=== PATIENT | female | born 1985 | race Caucasian/White ===

== ENCOUNTER 2016-12-23 18:59 | Emergency (ER) | payer SELFPAY ==
--- NOTE | ~2016-12-23 | CT4 ---
[facility] A Service of [facility] RADIOLOGY TEXT RESULTS PATIENT: TRINI BRANDON LOCATION: SED : 81 UNIT #: [id number] AGE: [address]: Brenda Hawkins SEX: F ORDER DR: [id number] [address] [address] [id number] E MR#: [id number] Acc #: [id number] NAME: TRINI BRANDON : 1985 SEX: F STUDY DATE/TIME: 12/23/2016 19:14 UNIT: SED ROOM: STUDY DESCRIPTION: CT Abd and Pelv Wo Cont Attending Physician: Brenda Hawkins Pa-C Ordering Physician: Brenda Hawkins Pa-C MEDICAL IMAGING REPORT This report is preliminary unless electronic signature is present. EXAM CT of the abdomen and pelvis without contrast HISTORY Abdominal pain with vomiting 4-5 days. Patient also reports left-sided abdominal pain. TECHNIQUE Axial CT images were obtained from the dome of the diaphragm through the symphysis pubis. No oral or intravenous contrast administered. This CT exam was performed with one or more of the following radiation dose reduction techniques: automatic exposure control, adjustment of mA and/or kV according to patient size, and iterative reconstruction. FINDINGS Images through the lung bases are clear. Liver appears unremarkable. Gallbladder is surgically absent. Spleen is within normal limits. There is a small hiatal hernia. Adrenal glands appear normal, as is the pancreas. No renal stones are seen. There is no hydroureteronephrosis. No distal ureteral or bladder stones are seen. The uterus appears unremarkable. I do not see any free fluid or adenopathy within the pelvis. There is no evidence for mechanical bowel obstruction. Fairly extensive fecal burden is seen throughout the colon and correlation with history of constipation is recommended. Patient's appendix is surgically absent. Review of bony windows does not demonstrate any aggressive osseous abnormalities. IMPRESSION [facility] A Service of [facility] RADIOLOGY TEXT RESULTS PATIENT: TRINI BRANDON LOCATION: SED : 83 UNIT #: [id number] AGE: [address]: Brenda Hawkins SEX: F ORDER DR: 1. Patient does have fairly extensive fecal burden seen throughout the colon. Correlation with history of constipation is recommended. Otherwise, no acute abnormality is seen. Patient's gallbladder and appendix are surgically absent. Solid organs appear unremarkable. Dictated by... Cheyanne Lomeli M.D. THIS IS AN ELECTRONICALLY VERIFIED REPORT Cheyanne Lomeli M.D. at 12/26/2016 1:19 PM AFF/pcl TD: 12/24/2016 00:00 JOB #: [id number] MEDICAL IMAGING REPORT
[2016-12-23 18:59] LABS: URINE SOURCE CLEAN CATCH
[~2016-12-23 18:59] MED LIST: ATIVAN0.5 M1; BACTRIM DS TABL1 TA2 PO; CITALOPRAM HBR40 MG PO; FIORICET1 TAB; PYRIDIUM100 MG PO; SYNTHROID125; ZESTRIL2.5 MG
[2016-12-23 19:02] LABS: URINE APPEARANCE CLEAR; URINE BILIRUBIN NEG (NEG); URINE BLOOD NEG (NEG); URINE COLOR YELLOW; URINE GLUCOSE NEG (NORM); URINE KETONE NEG (NEG); URINE LEUKOCYTE ESTERASE 2+ (NEG); URINE NITRATE NEG (NEG); URINE PH 6.5 (5-8); URINE PROTEIN NEG (NEG); URINE SPECIFIC GRAVITY 1.015 (1.003-1.035); URINE UROBILINOGEN 0.2 MG/DL (NORM)
[2016-12-23 19:07] LABS: MICRO INDICATED? YES
[2016-12-23 19:08] LABS: CULTURE INDICATED? YES; URINE BACTERIA NEG (NEG)
[2016-12-23 19:09] LABS: URINE MUCUS PRESENT; URINE SQUAMOUS EPITHELIAL CELL MODERATE /[HPF]
[2016-12-23 19:17] LABS: BASOPHIL# 0.1 X10e3 (0-0.3); BASOPHIL% 0.8 % (0-2.5); DIFF IND NO; EOSINOPHIL# 0.1 X10e3 (0-0.7); EOSINOPHIL% 1.6 % (0.0-7.0); HEMATOCRIT 41.7 % (35.0-45.0); HEMOGLOBIN 14.1 gm/dL (12.0-16.0); LYMPHOCYTE# 1.7 X10e3 (1.0-3.5); LYMPHOCYTE% 20.3 % (17.0-45.0); MEAN CELL VOLUME 84.4 FL (83-96); MEAN CORPUSCULAR HEMOGLOBIN 28.6 PG (28-34); MEAN CORPUSCULAR HGB CONC 33.9 g/dL (30-36); MONOCYTE# 0.5 X10e3 (0-1.0); MONOCYTE% 5.6 % (3.0-12.0); NEUTROPHIL# 5.9 X10e3 (1.5-7.1); NEUTROPHIL% 71.7 % (40-75); PLATELET COUNT 269 X10e3 (140-420); RED BLOOD COUNT 4.94 X10e (3.90-5.30); RED CELL DISTRIBUTION WIDTH 13.6 % (11.0-15.5); WHITE BLOOD COUNT 8.3 X10e3 (4.0-10.5)
[2016-12-23 19:34] LABS: ALKALINE PHOSPHATASE 88 U/L (32-92); ALT (SGPT) 11 U/L (10-40); AMYLASE 27 U/L (0-46); AST (SGOT) 27 U/L (10-42); BILIRUBIN, DIRECT 0.2 mg/dL (0.0-0.2); BILIRUBIN,INDIRECT 0.6 mg/dL (0.0-0.9); BILIRUBIN,TOTAL 0.8 mg/dL (0.2-2.0); BLOOD UREA NITROGEN 7 mg/dL (9-23); BUN/CREATININE RATIO 8.75; CALCIUM SERUM 8.7 mg/dL (8.4-10.2); CARBON DIOXIDE 27 mmol/L (22-31); CHLORIDE 102 mmol/L (100-111); CREATININE SERUM 0.8 mg/dL (0.6-1.4); GLOM FILT RATE Estimated ABOVE60 mL/min (>60); GLUCOSE FASTING 99 mg/dL (70-110); LIPASE 31 U/L (22-51); PROTEIN TOTAL SERUM 6.8 g/dL (6.0-8.3); SODIUM 136 mmol/L (135-145)
== END 2016-12-23 21:21 | disposition home or self-care (01) ==
LOC: SED 18:59
PROVIDERS: Physician Assistant Medical
DX: R11.10 Vomiting, unspecified (principal); G43.909 Migraine, unspecified, not intractable, without status migrainosus; R10.9 Unspecified abdominal pain; E03.9 Hypothyroidism, unspecified; Z90.49 Acquired absence of other specified parts of digestive tract
CPT/HCPCS: 36415; 74176; 80048; 80076; 81003; 82150; 83690; 84703; 85025; 87086; 96374; 96375; 99284; J1200; J1885; J2405; J2765

== ENCOUNTER 2016-12-28 11:52 | Emergency (ER) | payer OTHER ==
--- NOTE | ~2016-12-28 | CR2 ---
[facility] A Service of [facility] RADIOLOGY TEXT RESULTS PATIENT: TRINI BRANDON LOCATION: SED : 83 UNIT #: [id number] AGE: [address]: Gonzalo Ponce MD SEX: F ORDER DR: [id number] [address] [address] [id number] E MR#: [id number] Acc #: [id number] NAME: TRINI BRANDON : 1985 SEX: F STUDY DATE/TIME: 12/28/2016 12:17 UNIT: SED ROOM: STUDY DESCRIPTION: CR Abdomen Acute Series Attending Physician: Gonzalo Ponce M.D. Ordering Physician: Gonzalo Ponce M.D. Primary Care Physician: No Primary Care Physician MEDICAL IMAGING REPORT This report is preliminary unless electronic signature is present. EXAM Acute abdominal series 12/28 INDICATIONS Abdominal pain which is diffuse with constipation and vomiting. Symptoms for about 8 days. FINDINGS Upright view of the chest was obtained in addition to flat and upright views of the abdomen. Comparison made with 06/26/2016. The lungs are clear. The cardiac and mediastinal contours are normal. There is no pneumothorax. Cholecystectomy clips are present. Clips in the right lower quadrant are again seen as well and may reflect changes of appendectomy. Again seen is a large volume of stool in the colon compatible with constipation. Small bowel gas is noted as well in a nonspecific but nonobstructive pattern. No free air is seen on the upright view. IMPRESSION 1. No active disease in the chest. 2. No bowel obstruction or free air. 3. Large volume of stool in the colon compatible with the given history of constipation. Minimal small bowel gas is nonspecific. Dictated by... Atilio Fox Jr., M.D. THIS IS AN ELECTRONICALLY VERIFIED REPORT Atilio Fox Jr., M.D. at 12/28/2016 2:59 PM RLK/joser [facility] A Service of [facility] RADIOLOGY TEXT RESULTS PATIENT: TRINI BRANDON [id number] UNIT #: [id number] AGE: [address]: Gonzalo Ponce MD SEX: F ORDER DR: TD: 12/28/2016 14:53 JOB #: [id number] MEDICAL IMAGING REPORT
[2016-12-28 11:56] LABS: BASOPHIL# 0.1 X10e3 (0-0.3); BASOPHIL% 0.9 % (0-2.5); DIFF IND NO; EOSINOPHIL# 0.1 X10e3 (0-0.7); EOSINOPHIL% 2.5 % (0.0-7.0); HEMATOCRIT 39.3 % (35.0-45.0); LYMPHOCYTE# 1.6 X10e3 (1.0-3.5); LYMPHOCYTE% 26.9 % (17.0-45.0); MEAN CELL VOLUME 84.9 FL (83-96); MEAN CORPUSCULAR HEMOGLOBIN 28.1 PG (28-34); MEAN CORPUSCULAR HGB CONC 33.1 g/dL (30-36); MONOCYTE# 0.4 X10e3 (0-1.0); MONOCYTE% 7.3 % (3.0-12.0); NEUTROPHIL# 3.6 X10e3 (1.5-7.1); NEUTROPHIL% 62.4 % (40-75); PLATELET COUNT 255 X10e3 (140-420); RED BLOOD COUNT 4.63 X10e (3.90-5.30); RED CELL DISTRIBUTION WIDTH 13.6 % (11.0-15.5); WHITE BLOOD COUNT 5.8 X10e3 (4.0-10.5)
[2016-12-28 11:57] LABS: URINE SOURCE CLEAN CATCH
[2016-12-28 11:59] LABS: URINE APPEARANCE CLEAR; URINE BILIRUBIN NEG (NEG); URINE BLOOD NEG (NEG); URINE COLOR YELLOW; URINE GLUCOSE NEG (NORM); URINE KETONE NEG (NEG); URINE NITRATE NEG (NEG); URINE PROTEIN NEG (NEG); URINE UROBILINOGEN 0.2 MG/DL (NORM)
[2016-12-28 12:04] LABS: MICRO INDICATED? NO; URINE LEUKOCYTE ESTERASE NEG (NEG)
[2016-12-28 12:14] LABS: ALBUMIN SERUM 4.1 g/dL (3.5-5.0); ALKALINE PHOSPHATASE 80 U/L (32-92); ALT (SGPT) 14 U/L (10-40); AST (SGOT) 19 U/L (10-42); BILIRUBIN, DIRECT 0.1 mg/dL (0.0-0.2); BILIRUBIN,INDIRECT 0.1 mg/dL (0.0-0.9); BILIRUBIN,TOTAL 0.2 mg/dL (0.2-2.0); BLOOD UREA NITROGEN 6 mg/dL (9-23); BUN/CREATININE RATIO 8.57; CALCIUM SERUM 8.8 mg/dL (8.4-10.2); CARBON DIOXIDE 27 mmol/L (22-31); CHLORIDE 102 mmol/L (100-111); CREATININE SERUM 0.7 mg/dL (0.6-1.4); GLOM FILT RATE Estimated ABOVE60 mL/min (>60); GLUCOSE FASTING 101 mg/dL (70-110); LIPASE 24 U/L (22-51); POTASSIUM 3.8 mmol/L (3.5-5.1); PROTEIN TOTAL SERUM 7.1 g/dL (6.0-8.3); SODIUM 137 mmol/L (135-145)
== END 2016-12-28 14:04 | disposition home or self-care (01) ==
LOC: SED 11:52
PROVIDERS: Emergency Medicine
DX: K29.00 Acute gastritis without bleeding (principal); K59.00 Constipation, unspecified; Z90.49 Acquired absence of other specified parts of digestive tract
CPT/HCPCS: 36415; 74022; 80048; 80076; 81003; 83690; 84703; 85025; 96361; 96374; 96375; 99284; J1170; J2405

== ENCOUNTER 2017-05-07 11:45 | Emergency (ER) | payer OTHER ==
[2017-05-07 12:09] LABS: URINE SOURCE CLEAN CATCH
[2017-05-07 12:12] LABS: URINE APPEARANCE CLEAR; URINE BILIRUBIN NEG (NEG); URINE BLOOD NEG (NEG); URINE COLOR YELLOW; URINE GLUCOSE NEG (NORM); URINE KETONE NEG (NEG); URINE LEUKOCYTE ESTERASE 2+ (NEG); URINE NITRATE NEG (NEG); URINE PROTEIN NEG (NEG); URINE SPECIFIC GRAVITY 1.025 (1.003-1.035); URINE UROBILINOGEN 0.2 MG/DL (NORM)
[2017-05-07 12:15] LABS: MICRO INDICATED? YES
[2017-05-07] MEDS ORDERED: SYNTHROID PO (12:17)
[2017-05-07] MEDS ORDERED: PROZAC PO (12:18)
[2017-05-07] MEDS ORDERED: ATARAX PO (12:18)
[2017-05-07] MEDS ORDERED: ZYRTEC10 M1 PO (12:18)
[2017-05-07 12:31] LABS: BASOPHIL# 0.1 X10e3 (0-0.3); BASOPHIL% 0.7 % (0-2.5); EOSINOPHIL# 0.1 X10e3 (0-0.7); EOSINOPHIL% 0.7 % (0.0-7.0); HEMATOCRIT 42.7 % (35.0-45.0); HEMOGLOBIN 14.6 gm/dL (12.0-16.0); LYMPHOCYTE# 2.1 X10e3 (1.0-3.5); LYMPHOCYTE% 23.5 % (17.0-45.0); MEAN CELL VOLUME 83.6 FL (83-96); MEAN CORPUSCULAR HEMOGLOBIN 28.5 PG (28-34); MEAN CORPUSCULAR HGB CONC 34.2 g/dL (30-36); MEAN PLATELET VOLUME 8.1 FL (6.5-11.5); MONOCYTE# 0.4 X10e3 (0-1.0); MONOCYTE% 4.9 % (3.0-12.0); NEUTROPHIL# 6.1 X10e3 (1.5-7.1); NEUTROPHIL% 70.2 % (40-75); PLATELET COUNT 277 X10e3 (140-420); RED BLOOD COUNT 5.11 X10e (3.90-5.30); RED CELL DISTRIBUTION WIDTH 13.6 % (11.0-15.5); WHITE BLOOD COUNT 8.8 X10e3 (4.0-10.5)
[2017-05-07 12:32] LABS: DIFF IND NO
[2017-05-07 12:34] LABS: CULTURE INDICATED? YES; URINE BACTERIA 2+ (NEG); URINE RBC 0-2 /[HPF] (0-2); URINE SQUAMOUS EPITHELIAL CELL MODERATE /[HPF]
[2017-05-07 12:57] LABS: BUN/CREATININE RATIO 11.25; CALCIUM SERUM 9.1 mg/dL (8.4-10.2); CREATININE SERUM 0.8 mg/dL (0.6-1.4); POTASSIUM 4.3 mmol/L (3.5-5.1)
== END 2017-05-07 14:45 | disposition home or self-care (01) ==
LOC: SED 11:45
PROVIDERS: Student in an Organized Health Care Education/Training Program
DX: N12 Tubulo-interstitial nephritis, not specified as acute or chronic (principal); N39.0 Urinary tract infection, site not specified; E86.0 Dehydration; Z90.89 Acquired absence of other organs; Z79.899 Other long term (current) drug therapy
CPT/HCPCS: 36415; 80048; 81003; 83690; 84703; 85025; 87086; 96361; 96374; 96375; 99283; J0696; J1885; J2270; J2405

== ENCOUNTER 2017-05-27 10:37 | Emergency (ER) | payer OTHER ==
--- NOTE | ~2017-05-27 | CT2 ---
[facility] A Service [facility] RADIOLOGY TEXT RESULTS PATIENT: TRINI BRANDON LOCATION: SED : 83 UNIT #: [id number] AGE: [address]: Tyrone Thomason MD SEX: F ORDER DR: [id number] [place] [id number] E MR#: [id number] Acc #: [id number] NAME: TRINI BRANDON : 1985 SEX: F STUDY DATE/TIME: 05/27/2017 12:52 UNIT: SED ROOM: STUDY DESCRIPTION: CT Abd and Pelv W Cont Attending Physician: Tyrone Thomason M.D. Ordering Physician: Tyrone Thomason M.D. Primary Care Physician: No Primary Care Physician MEDICAL IMAGING REPORT This report is preliminary unless electronic signature is present. EXAM CT abdomen and pelvis with contrast HISTORY Bladder pain which is getting worse. Patient had a hysterectomy a week ago. COMPARISON 12/23/2016 TECHNIQUE The patient was given 100 mL of Isovue 370 and also oral contrast and axial 5 mm images were obtained through the abdomen and pelvis. This CT exam was performed with one or more of the following radiation dose reduction techniques: automatic control, adjustment of mA and/or kV according to patient size, and iterative reconstruction. FINDINGS The lung bases are clear. The gallbladder has been removed. The liver, spleen, pancreas, adrenal glands and kidneys are normal in appearance. The bowel is normal in appearance. There are some postoperative changes in the abdominal wall consistent with previous hysterectomy. In the stranding anterior to the bladder and posterior to the abdominal wall. There are two small air bubbles measuring up to 5 mm in diameter. There is no evidence of abscess. The ovaries are not easily visualized. IMPRESSION There is some expected stranding and postoperative changes in the anterior pelvis where the patient had hysterectomy. Just anterior to the bladder and posterior to the abdominal wall musculature there are two small air bubbles measuring up to 5 mm in diameter. These might be related to the recent surgery. There is certainly no evidence of abscess. [facility] A Service [facility] RADIOLOGY TEXT RESULTS PATIENT: TRINI BRANDON LOCATION: [facility] : [birth year] UNIT #: [id number] AGE: [address]: Tyrone Thomason MD SEX: F ORDER DR: Dictated by... Tyrone Hemphill M.D. THIS IS AN ELECTRONICALLY VERIFIED REPORT Tyrone Hemphill M.D. at 05/28/2017 9:36 PM CLIVE/hany TD: 05/28/2017 04:29 JOB #: [id number] MEDICAL IMAGING REPORT Page 1 of 1
[~2017-05-27 10:37] MED LIST changes: +ATARAX PO; +PROZAC PO; +SYNTHROID PO; +ZYRTEC10 M1 PO
[2017-05-27] MEDS ORDERED: TRAMADOL HCL50 M2 (10:43)
[2017-05-27] MEDS ORDERED: MOTRIN600 M2 (10:44)
[2017-05-27 11:14] LABS: URINE SOURCE CLEAN CATCH
[2017-05-27 11:16] LABS: URINE APPEARANCE SL CLOUDY; URINE BILIRUBIN NEG (NEG); URINE BLOOD 1+ (NEG); URINE COLOR YELLOW; URINE GLUCOSE NEG (NORM); URINE KETONE NEG (NEG); URINE LEUKOCYTE ESTERASE 3+ (NEG); URINE NITRATE NEG (NEG); URINE PROTEIN NEG (NEG); URINE SPECIFIC GRAVITY <=1.005 (1.003-1.035); URINE UROBILINOGEN 0.2 MG/DL (NORM)
[2017-05-27 11:23] LABS: MICRO INDICATED? YES
[2017-05-27 11:24] LABS: URINE RBC 0-2 /[HPF] (0-2); URINE WBC 25-50 /[HPF] (0-5)
[2017-05-27 11:25] LABS: CULTURE INDICATED? YES; URINE BACTERIA 1+ (NEG); URINE SQUAMOUS EPITHELIAL CELL MODERATE /[HPF]
[2017-05-27 11:55] LABS: BASOPHIL# 0.1 X10e3 (0-0.3); BASOPHIL% 1.1 % (0-2.5); EOSINOPHIL# 0.1 X10e3 (0-0.7); HEMATOCRIT 38.1 % (35.0-45.0); LYMPHOCYTE# 1.6 X10e3 (1.0-3.5); LYMPHOCYTE% 24.2 % (17.0-45.0); MEAN CELL VOLUME 82.7 FL (83-96); MEAN CORPUSCULAR HEMOGLOBIN 28.1 PG (28-34); MEAN PLATELET VOLUME 7.6 FL (6.5-11.5); MONOCYTE# 0.3 X10e3 (0-1.0); MONOCYTE% 4.9 % (3.0-12.0); NEUTROPHIL# 4.4 X10e3 (1.5-7.1); NEUTROPHIL% 68.8 % (40-75); PLATELET COUNT 309 X10e3 (140-420); RED BLOOD COUNT 4.61 X10e (3.90-5.30); WHITE BLOOD COUNT 6.4 X10e3 (4.0-10.5)
[2017-05-27 11:57] LABS: DIFF IND NO
[2017-05-27 12:14] LABS: ALBUMIN SERUM 4.1 g/dL (3.5-5.0); BILIRUBIN,TOTAL 0.3 mg/dL (0.2-2.0); BUN/CREATININE RATIO 17.5; CALCIUM SERUM 8.7 mg/dL (8.4-10.2); CREATININE SERUM 0.8 mg/dL (0.6-1.4); POTASSIUM 4.1 mmol/L (3.5-5.1); PROTEIN TOTAL SERUM 7.4 g/dL (6.0-8.3)
== END 2017-05-27 14:02 | disposition home or self-care (01) ==
LOC: SED 10:37
PROVIDERS: Emergency Medicine
DX: N39.0 Urinary tract infection, site not specified (principal); G89.18 Other acute postprocedural pain; I10 Essential (primary) hypertension; F41.9 Anxiety disorder, unspecified; Z90.49 Acquired absence of other specified parts of digestive tract; Z90.710 Acquired absence of both cervix and uterus; Z87.440 Personal history of urinary (tract) infections
CPT/HCPCS: 74177; 80053; 81003; 85025; 87086; 96361; 96365; 96375; 96376; 99284; J1956; J2270; J2405; Q9967

== ENCOUNTER 2017-06-08 14:18 | Emergency (ER) | payer OTHER ==
[~2017-06-08] VITALS: Ht 157.5 cm; Wt 79.4 kg
--- NOTE | ~2017-06-08 | CT2 ---
[facility] A Service of [facility] RADIOLOGY TEXT RESULTS PATIENT: TRINI BRANDON LOCATION: SED : 81 UNIT #: [id number] AGE: [address]: Tyrone Thomason MD SEX: F ORDER DR: [id number] [address] [address] [id number] E MR#: [id number] Acc #: [id number] NAME: TRINI BRANDON : 1985 SEX: F STUDY DATE/TIME: 06/08/2017 16:49 UNIT: SED ROOM: STUDY DESCRIPTION: CT Abd and Pelv W Cont Attending Physician: Tyrone Thomason M.D. Ordering Physician: Tyrone Thomason M.D. Primary Care Physician: No Primary Care Physician MEDICAL IMAGING REPORT This report is preliminary unless electronic signature is present. EXAM CT scan of the abdomen and pelvis with contrast, 06/08/2017. HISTORY Left sided abdominal pain for 3 weeks. Left upper quadrant abdominal pain after eating with nausea. Hypertension. TECHNIQUE Spiral CT was performed through the abdomen and pelvis following oral and intravenous contrast administration. This CT exam was performed with one or more of the following radiation dose reduction techniques: automatic exposure control, adjustment of mA and/or kV according to patient size, and iterative reconstruction. FINDINGS ABDOMEN: The liver, spleen, pancreas, adrenal glands and kidneys are normal. The gallbladder is surgically absent. PELVIS FINDINGS: There is colonic diverticulosis without evidence of diverticulitis. The gut is otherwise unremarkable. No adenopathy is seen and there is no free fluid in the abdomen or pelvis. The lung bases are normal. IMPRESSION 1. Surgical absence of the gallbladder. 2. Diverticulosis. No evidence of diverticulitis. Dictated by... Darian Hooker M.D. THIS IS AN ELECTRONICALLY VERIFIED REPORT Darian Hooker M.D. at 06/09/2017 7:19 AM [facility] A Service of [facility] RADIOLOGY TEXT RESULTS PATIENT: TRINI BRANDON LOCATION: SED : 81 UNIT #: [id number] AGE: [address]: Tyrone Thomason MD SEX: F ORDER DR: FELICE/malik TD: 06/08/2017 23:48 JOB #: [id number] MEDICAL IMAGING REPORT Page 1 of 1
[~2017-06-08 14:18] MED LIST changes: +MOTRIN600 M2; +TRAMADOL HCL50 M2
[2017-06-08] MEDS ORDERED: ZOFRANODT PO (14:27)
[2017-06-08 15:20] LABS: BASOPHIL# 0.1 X10e3 (0-0.3); BASOPHIL% 0.8 % (0-2.5); EOSINOPHIL# 0.1 X10e3 (0-0.7); HEMATOCRIT 36.7 % (35.0-45.0); HEMOGLOBIN 12.6 gm/dL (12.0-16.0); LYMPHOCYTE# 1.7 X10e3 (1.0-3.5); LYMPHOCYTE% 26.2 % (17.0-45.0); MEAN CELL VOLUME 82.9 FL (83-96); MEAN CORPUSCULAR HEMOGLOBIN 28.5 PG (28-34); MEAN CORPUSCULAR HGB CONC 34.3 g/dL (30-36); MEAN PLATELET VOLUME 7.6 FL (6.5-11.5); MONOCYTE# 0.4 X10e3 (0-1.0); MONOCYTE% 5.9 % (3.0-12.0); NEUTROPHIL# 4.3 X10e3 (1.5-7.1); NEUTROPHIL% 65.1 % (40-75); PLATELET COUNT 267 X10e3 (140-420); RED BLOOD COUNT 4.42 X10e (3.90-5.30); RED CELL DISTRIBUTION WIDTH 13.8 % (11.0-15.5); WHITE BLOOD COUNT 6.6 X10e3 (4.0-10.5)
[2017-06-08 15:28] LABS: DIFF IND NO
[2017-06-08 15:59] LABS: ALKALINE PHOSPHATASE 77 U/L (32-92); ALT (SGPT) 11 U/L (10-40); AMYLASE 32 U/L (0-46); AST (SGOT) 15 U/L (10-42); BILIRUBIN,TOTAL 0.2 mg/dL (0.2-2.0); BLOOD UREA NITROGEN 10 mg/dL (9-23); BUN/CREATININE RATIO 11.11; CALCIUM SERUM 8.8 mg/dL (8.4-10.2); CARBON DIOXIDE 26 mmol/L (22-31); CHLORIDE 107 mmol/L (100-111); CREATININE SERUM 0.9 mg/dL (0.6-1.4); GLOM FILT RATE Estimated 84.1 mL/min (>60); GLUCOSE FASTING 139 mg/dL (70-110); LIPASE 48 U/L (22-51); POTASSIUM 3.6 mmol/L (3.5-5.1); PROTEIN TOTAL SERUM 6.9 g/dL (6.0-8.3); SODIUM 139 mmol/L (135-145)
[2017-06-08 16:04] LABS: BILIRUBIN, DIRECT <0.1 mg/dL (0.0-0.2); BILIRUBIN,INDIRECT 0.1 mg/dL (0.0-0.9)
[2017-06-08 16:46] LABS: URINE SOURCE CLEAN CATCH
[2017-06-08 16:49] LABS: URINE APPEARANCE HAZY; URINE BILIRUBIN NEG (NEG); URINE BLOOD NEG (NEG); URINE COLOR YELLOW; URINE GLUCOSE NEG (NORM); URINE KETONE NEG (NEG); URINE LEUKOCYTE ESTERASE 3+ (NEG); URINE NITRATE NEG (NEG); URINE PH 5.5 (5-8); URINE PROTEIN NEG (NEG); URINE SPECIFIC GRAVITY <=1.005 (1.003-1.035); URINE UROBILINOGEN 0.2 MG/DL (NORM)
[2017-06-08 16:51] LABS: MICRO INDICATED? YES
[2017-06-08 16:52] LABS: URINE RBC 0-2 /[HPF] (0-2)
[2017-06-08 16:53] LABS: CULTURE INDICATED? YES; URINE AMORPHOUS SEDIMENT AMORP URATES; URINE BACTERIA 1+ (NEG); URINE SQUAMOUS EPITHELIAL CELL MODERATE /[HPF]
[2017-06-08 16:58] LABS: AMPHETAMINE NEG (NEG); BARBITURATES NEG (NEG); BENZODIAZEPINES NEG (NEG); COCAINE NEG (NEG); MARIJUANA POS (NEG); OPIATES NEG (NEG); TRICYCLIC ANTIDEPRESSANTS NEG (NEG); U METHADONE NEG (NEG)
== END 2017-06-08 18:25 | disposition home or self-care (01) ==
LOC: SED 14:18
PROVIDERS: Emergency Medicine
DX: K57.32 Diverticulitis of large intestine without perforation or abscess without bleeding (principal); N39.0 Urinary tract infection, site not specified; G89.18 Other acute postprocedural pain; Z90.710 Acquired absence of both cervix and uterus; Z90.49 Acquired absence of other specified parts of digestive tract; Z90.89 Acquired absence of other organs; Z87.891 Personal history of nicotine dependence; Z79.899 Other long term (current) drug therapy
CPT/HCPCS: 36415; 74177; 80048; 80076; 80307; 81003; 82150; 83690; 84703; 85025; 87086; 96374; 96375; 96376; 99284; J1170; J2405; Q9967

== ENCOUNTER 2017-06-27 11:14 | Emergency (ER) | payer OTHER ==
--- NOTE | ~2017-06-27 | CR2 ---
[facility] A Service of [facility] RADIOLOGY TEXT RESULTS PATIENT: TRINI BRANDON LOCATION: SED : 81 UNIT #: [id number] AGE: [address]: Nataliia Ascencio MD SEX: F ORDER DR: [id number] [address] [address] [id number] E MR#: [id number] Acc #: [id number] NAME: TRINI BRANDON : 1985 SEX: F STUDY DATE/TIME: 06/27/2017 12:29 UNIT: SED ROOM: STUDY DESCRIPTION: CR Abdomen Acute Series Attending Physician: Nataliia Ascencio M.D. Ordering Physician: Nataliia Ascencio M.D. Primary Care Physician: No Primary Care Physician MEDICAL IMAGING REPORT This report is preliminary unless electronic signature is present. EXAM Acute abdomen series 06/27/2017 1229 hours. HISTORY 31-year-old woman complaining of episodes of left-sided abdominal pain since hysterectomy March 2017. This episode began 2 days ago. Patient states she had diagnosis of diverticulitis [address] abdomen and pelvis, 06/08/2017. FINDINGS Upright chest film demonstrates normal cardiac, mediastinal and hilar contours. The lungs are clear, and there are no effusions. Supine and upright views of the abdomen demonstrate clips consistent with prior cholecystectomy. There is no distension of the small bowel or colon. No bowel wall thickening or free air. IMPRESSION 1. No acute findings in the chest. 2. No evidence of bowel distension or bowel wall thickening. No free air or suspicious calcification. Dictated by... Martha French M.D. THIS IS AN ELECTRONICALLY VERIFIED REPORT Martha French M.D. at 06/27/2017 5:27 PM KAVYA/caden [facility] A Service of [facility] RADIOLOGY TEXT RESULTS PATIENT: TRINI BRANDON LOCATION: SED : 81 UNIT #: [id number] AGE: [address]: Nataliia Ascencio MD SEX: F ORDER DR: TD: 06/27/2017 16:31 JOB #: [id number] MEDICAL IMAGING REPORT Page 1 of 1
[~2017-06-27 11:14] MED LIST changes: +ZOFRANODT PO
[2017-06-27 12:16] LABS: URINE SOURCE CLEAN CATCH
[2017-06-27 12:18] LABS: URINE APPEARANCE CLEAR; URINE BILIRUBIN NEG (NEG); URINE BLOOD NEG (NEG); URINE COLOR YELLOW; URINE GLUCOSE NEG (NORM); URINE KETONE NEG (NEG); URINE LEUKOCYTE ESTERASE 3+ (NEG); URINE NITRATE NEG (NEG); URINE PH 6.5 (5-8); URINE PROTEIN NEG (NEG); URINE SPECIFIC GRAVITY 1.015 (1.003-1.035); URINE UROBILINOGEN 0.2 MG/DL (NORM)
[2017-06-27 12:19] LABS: BASOPHIL# 0.1 X10e3 (0-0.3); BASOPHIL% 1.2 % (0-2.5); DIFF IND NO; EOSINOPHIL# 0.2 X10e3 (0-0.7); HEMATOCRIT 39.6 % (35.0-45.0); HEMOGLOBIN 13.4 gm/dL (12.0-16.0); LYMPHOCYTE# 1.9 X10e3 (1.0-3.5); LYMPHOCYTE% 30.2 % (17.0-45.0); MEAN CELL VOLUME 84.1 FL (83-96); MEAN CORPUSCULAR HEMOGLOBIN 28.5 PG (28-34); MEAN CORPUSCULAR HGB CONC 33.9 g/dL (30-36); MEAN PLATELET VOLUME 8.1 FL (6.5-11.5); MONOCYTE# 0.4 X10e3 (0-1.0); MONOCYTE% 6.9 % (3.0-12.0); NEUTROPHIL# 3.7 X10e3 (1.5-7.1); NEUTROPHIL% 58.7 % (40-75); PLATELET COUNT 276 X10e3 (140-420); RED BLOOD COUNT 4.71 X10e (3.90-5.30); WHITE BLOOD COUNT 6.4 X10e3 (4.0-10.5)
[2017-06-27 12:19] LABS: MICRO INDICATED? YES
[2017-06-27 12:29] LABS: ALBUMIN SERUM 4.3 g/dL (3.5-5.0); ALKALINE PHOSPHATASE 85 U/L (32-92); ALT (SGPT) 11 U/L (10-40); AMYLASE 24 U/L (0-46); AST (SGOT) 17 U/L (10-42); BILIRUBIN,TOTAL 0.3 mg/dL (0.2-2.0); BLOOD UREA NITROGEN 7 mg/dL (9-23); BUN/CREATININE RATIO 8.75; CALCIUM SERUM 8.4 mg/dL (8.4-10.2); CARBON DIOXIDE 28 mmol/L (22-31); CHLORIDE 101 mmol/L (100-111); CREATININE SERUM 0.8 mg/dL (0.6-1.4); GLUCOSE FASTING 103 mg/dL (70-110); LIPASE 31 U/L (22-51); POTASSIUM 3.7 mmol/L (3.5-5.1); PROTEIN TOTAL SERUM 7.7 g/dL (6.0-8.3); SODIUM 133 mmol/L (135-145)
[2017-06-27 12:41] LABS: CULTURE INDICATED? YES; URINE BACTERIA 2+ (NEG); URINE RBC 0-2 /[HPF] (0-2); URINE SQUAMOUS EPITHELIAL CELL MODERATE /[HPF]; URINE WBC 25-50 /[HPF] (0-5)
[2017-06-27 13:51] LABS: BILIRUBIN, DIRECT <0.1 mg/dL (0.0-0.2); BILIRUBIN,INDIRECT 0.2 mg/dL (0.0-0.9)
== END 2017-06-27 14:24 | disposition home or self-care (01) ==
LOC: SED 11:14
PROVIDERS: Emergency Medicine
DX: R10.9 Unspecified abdominal pain (principal); R11.2 Nausea with vomiting, unspecified; R19.7 Diarrhea, unspecified; Z90.710 Acquired absence of both cervix and uterus; Z90.49 Acquired absence of other specified parts of digestive tract
CPT/HCPCS: 36415; 74022; 80048; 80076; 81003; 82150; 83690; 84703; 85025; 87086; 96374; 96375; 99284; C9113; J1885; J2270; J2405